=== PATIENT | male | born 1980 | race African-American/Black ===

== ENCOUNTER 2019-07-05 09:48 | Emergency (ER) | payer MEDICARE, MEDICAID, OTHER ==
--- NOTE | 2019-07-05 10:22 | ED ---
Complex/Multi-Sys Presentation - HPI Summary HPI Summary: Patient is a 38-year-old gentleman with a history of Down syndrome and mild developmental delay. Patient is here with a caregiver from the [facility]. Patient was in his usual state of health last evening. Patient was noted to have some emesis after dinner and a fever. Patient was given Tylenol twice during the night. Max Temp reported to be 100.7. Last Tylenol was earlier this morning. Patient has been holding his abdomen and indicating pain. Patient did have a bowel movement this morning. Patient did urinate. Patient has had water to drink but nothing else to eat. Patient has not been around anybody else that has been sick. Patient lives in a home and none of the caregivers have been ill and have been close temperature surveillance monitoring given the recent coated environment. Patient has not had a cough. No shortness of breath. Patient does not have any congestion. Patient does not have any known history of abdominal surgeries for have his history is somewhat limited due to his developmental delay. Patient has not had diarrhea. Patient's medications and the MAR were reviewed. Patient does not have a cardiac history, hypertension, or cholesterol. Patient is on no anticoagulation. Patient does not smoke. Patient's medications are centered in the EMR by triage at this visit. - History Of Current Complaint Chief Complaint: EDFever Hx Obtained From: Patient, Family/Shot Peening Operator - [facility] Onset/Duration: Sudden Onset Timing: Intermittent, Lasting: Associated Signs And Symptoms: Positive: Abdominal Pain. Negative: SOB, Cough, Diarrhea - Allergies/Home Medications Allergies/Adverse Reactions: Allergies Allergy/AdvReac Type Severity Reaction Status Date / Time ENVIRONMENTAL Allergy Sneezing Uncoded 07/05/19 10:18 Home Medications: Home Medications Benzoyl Peroxide [Acne Control Cleanser] 142 gm TP DAILY 07/05/19 [History Confirmed 07/05/19] Cholecalciferol TAB* [Vitamin D TAB*] 2,000 units PO DAILY 07/05/19 [History Confirmed 07/05/19] Cyanocobalamin (Vitamin B-12) [Vitamin B-12] 1,000 mcg PO DAILY 07/05/19 [ History Confirmed 07/05/19] DOXYcycline CAP(*) [DOXYcycline 100MG CAP(*)] 100 mg PO DAILY 07/05/19 [History Confirmed 07/05/19] Ondansetron HCl [Zofran] 4 mg PO Q6HR PRN #10 tablet 07/05/19 [Rx] PMH/Surg Hx/FS Hx/Imm Hx Previously Healthy: Yes Endocrine/Hematology History: Reports: Hx Thyroid Disease - NO MEDS, MD WATCHING Cardiovascular History: Denies: Other Cardiovascular Problems/Disorders Respiratory History: Denies: Other Respiratory Problems/Disorders Musculoskeletal History: Denies: Other Musculoskeletal History Sensory History: Reports: Hx Cataracts - LEGALLY BLIND, BEGINNING OF CATHLEEN CATARACTS, Hx Contacts or Glasses Denies: Hx Hearing Aid Opthamlomology History: Reports: Hx Cataracts - LEGALLY BLIND, BEGINNING OF CATHLEEN CATARACTS, Hx Contacts or Glasses Neurological History: Reports: Other Neuro Impairments/Disorders - CESAR SYNDROME, MR - Surgical History Surgery Procedure, Year, and Place: 7-8 SETS OF EAR TUBES, [facility] Hx Anesthesia Reactions: No Infectious Disease History: No Infectious Disease History: Denies: Traveled Outside the [place] in Last 30 Days - Family History Known Family History: Positive: Unknown - not in chart, caregiver unsure - Social History Substance Use Type: Reports: None Review of Systems - ROS Summary Review of Systems Summary: limited related to MR Positive: Fever ENT: Negative - Congestion Negative: Shortness Of Breath, Cough Positive: Abdominal Pain, Vomiting. Negative: Diarrhea Negative: hematuria All Other Systems Reviewed And Are Negative: Yes Physical Exam - Summary Physical Exam Summary: Vital Signs Reviewed: Yes alert - limited verbal communication at baseline baseline mental state per caregiver Eyes: Conjunctiva Clear, TOM. EOM intact and full ENT: Hearing grossly normal TM x 2 clear,turbinates moist mmoist, uvula midline , no exudate, no erythema Neck: Positive: Supple Respiratory: Positive: No respiratory distress, No accessory muscle use + CTA throughout no w/r, no cough, no increased WOB Cardiovascular: RRR nl s1, s2 no m/r CBT <2 sec abd soft + BS ND mild diffuse tenderness -increased LQ R>L noguarding no reboud soft Musculoskeletal Exam: BRENNAN x 4 without difficulty Strength Intact, ROM Intact Neurological: Positive: Alert, basline per caregiver Psychological: Positive: Normal Response To examiner Skin: Positive: no rash, no ecchymosis Triage Information Reviewed: Yes Vital Signs On Initial Exam: Initial Vitals Temp Pulse Resp BP Pulse Ox 97.6 F 81 16 107/71 98 07/05/19 10:04 07/05/19 10:04 07/05/19 10:04 07/05/19 10:04 07/05/19 10:04 Vital Signs Reviewed: Yes Procedures - Sedation Patient Received Moderate/Deep Sedation with Procedure: No Diagnostics - Vital Signs Vital Signs Temp Pulse Resp BP Pulse Ox 07/05/19 10:04 97.6 F 81 16 107/71 98 - Laboratory Result Diagrams: 07/05/19 11:00 07/05/19 11:00 Lab Statement: Any lab studies that have been ordered have been reviewed, and results considered in the medical decision making process. - Radiology Chest x-ray Radiology Interpretation Completed By: Radiologist Summary of Radiographic Findings: No active cardiopulmonary disease is noted. ED physician has reviewed this report. - CT Chest/Abdomen/Pelvis CT CT Interpretation Completed By: Radiologist Summary of CT Findings: No definite evidence of abnormal masses or fluid collections are noted. No. pulmonary lesions are noted. No evidence of bowel obstruction is noted with contrast in the colon. Moderate amount of stool is noted in the descending colon and sigmoid colon. The urinary bladder is moderately distended. ED physician has reviewed this report. - EKG No standard instances Cardiac Rate: NL - 07/05/19 10:56 NSR HR 78 No STEMI Re-Evaluation - Re-Evaluation First Eval Comment: No vomiting -drank contrast - awaiting CT results. labs unremarkbale. urine pending. Pt resides at residential - erquesting COVID testing - reviewed isolatiion requirement - pt can be sole use of restroom. aware and agree with plan Second Eval Comment: no vomiting. CT unremarkable. urine neg. Will Rx zofrran and discharge with COVID instructions. RN assured contact info in chart accurate for [facility] Complex Multi-Symp Course/Dx Course Of Treatment: Patient presents to emergency department with caregiver. Patient is mildly relatively with Down syndrome. Last night patient developed emesis and fever. Patient indicating some epigastric pain. Patient was given Tylenol last dose around 3 AM. Temperature reached 100.7 tympanic. On exam vital signs are stable. Patient does have some abdominal pain. Patient with no respiratory symptoms on exam. We'll check EKG troponin. We'll check labs and CT urine. Patient will remain in isolation at this time however low suspicion for Coumadin given patient's lack of contacts on presentation. Caregiver comfortable with plan. We'll give patient some Pepcid as well as Zofran.Will closely reassess - Diagnoses Provider Diagnoses: Suspected COVID-19 virus infection, Vomiting Discharge ED - Sign-Out/Discharge Documenting (check all that apply): Patient Departure - Discharge Plan Condition: Stable Disposition: HOME Prescriptions: Ondansetron HCl [Zofran] 4 mg PO Q6HR PRN #10 tablet PRN Reason: Vomiting Patient Education Materials: Acute Nausea and Vomiting (ED), Acute Abdominal Pain (ED) Forms: COVID-19 Tested & Isolation Referrals: Ketty Corey MD [Primary Care Provider] - Additional Instructions: Evaluation in the emergency department today did not identify a cause of her fever. Your CT scan and blood work were reviewed and not concerning. As discussed, you have been tested for COVID-19. Please Follow the strict isolation guidelines as included in this practice. He should remain on isolation until he received a phone call with his test results from the [facility]. If you have [place] questions contact the Health Department. It is recommended you follow-up with his primary care provider. If there is uncontrolled fevers, uncontrolled vomiting, or you have any other concerns, return to emergency for further evaluation. There was no vomiting in the emergency department - it recommended he Eat small , frequent amounts of bland food (crackers, dry toast, scrambled eggs, applesauce) - avoid spicy foods, acidic foods, tomato based foods, citric foods , fried foods, fatty foods - Billing Disposition and Condition Condition: STABLE Disposition: Home - Attestation Statements Document Initiated by Rhiannon: Yes Documenting Scribe: Margarita Villarreal Provider For Whom Rhiannon is Documenting (Include Credential): Pat Corey MD Scribe Attestation: Margarita Martinez, scribed for Pat Corey MD on 07/05/19 at 1703. Scribe Documentation Reviewed: Yes Provider Attestation: The documentation as recorded by the Margarita nieves accurately reflects the service I personally performed and the decisions made by me, Pat Corey MD Status of Scribe Document: Viewed
[2019-07-05] MEDS ORDERED: Ondansetron INJ* 2 MG/ML VIAL IV ONE (10:46)
[2019-07-05] MEDS ORDERED: Famotidine IV* 10 MG/ML 2 ML (20 mg) IV SLOW PU ONE (10:46)
[2019-07-05] MEDS ORDERED: NS 0.9% 1000 ML** 1,000 ML IV ONE (10:46)
[2019-07-05 11:19] LABS: ABS Lymphocytes 0.7 10^3/ul (1.0-4.8); ABS Monocytes 0.5 10^3/ul (0-0.8); ABS Neutrophils 2.5 10^3/ul (1.5-7.7); Eosinophil % 0.9 %; Hematocrit 45 % (42-52); Hemoglobin 14.9 g/dL (14.0-18.0); Lymphocyte % 18.3 %; Mean Corpuscular HGB Conc 34 g/dL (31-36); Mean Corpuscular Hemoglobin 31 pg (27-31); Mean Corpuscular Volume 93 fL (80-94); Mean Platelet Volume 7.3 fL (7.4-10.4); Nucleated Red Blood Cells % 0.1; Platelet Count 184 10^3/uL (150-450); Red Blood Count 4.77 10^6 /uL (4.18-5.48); Red Cell Distribution Width 14 % (10-15); White Blood Count 3.7 10^3/uL (3.5-10.8)
[2019-07-05 11:35] LABS: Albumin 3.7 g/dL (3.2-5.2); Albumin/Globulin Ratio 1.2 (1-3); BUN/Creatinine Ratio 16.2 (8-20); Calcium 8.7 mg/dL (8.6-10.3); EGFR African American 95.6 (>60); Globulin 3.2 g/dL (2-4); Magnesium 1.9 mg/dL (1.9-2.7); Total Bilirubin 0.5 mg/dL (0.2-1.0); Total Protein 6.9 g/dL (6.4-8.9)
[2019-07-05] MEDS ORDERED: Iohexol 300* (CONTRAST) 10 ML SDV IV ONE (12:13)
[2019-07-05 14:27] LABS: Urine Appearance Clear; Urine Bilirubin Negative (Negative); Urine Blood Negative (Negative); Urine Color Straw; Urine Glucose Negative (Negative); Urine Ketones Negative (Negative); Urine Nitrite Negative (Negative); Urine Protein Negative (Negative); Urine Specific Gravity 1.042 (1.010-1.030); Urine Urobilinogen Negative (Negative)
[2019-07-05 14:31] VITALS: BP 117/77
== END 2019-07-05 14:54 | disposition home or self-care (01) ==
LOC: ED 09:48
DX: Z20.828 Contact with and (suspected) exposure to other viral communicable diseases (principal); R11.10 Vomiting, unspecified; R10.9 Unspecified abdominal pain; Q90.9 Down syndrome, unspecified; R62.50 Unspecified lack of expected normal physiological development in childhood; E03.9 Hypothyroidism, unspecified; Z79.899 Other long term (current) drug therapy
CPT/HCPCS: 36415; 71045; 71260; 74177; 80053; 81003; 83605; 83690; 83735; 84484; 85025; 87635; 93005; 96374; 96375; 99283; G2023; J2405; Q9967